=== PATIENT | female | born 1975 | race Caucasian/White ===

== ENCOUNTER 2024-06-21 02:00 | Emergency (ER) | payer OTHER ==
[~2024-06-21] VITALS: Ht 149.9 cm; Wt 81.6 kg
[2024-06-21] MEDS ORDERED: DIPHENHYDRAMINE HCL 50 MG/ML VIAL 1ML IV STA (03:49)
[2024-06-21] MEDS ORDERED: METHYLPREDNISOLONE SOD SUCC 125 MG VIAL IV STA (03:50)
[2024-06-21] MEDS ORDERED: CEFTRIAXONE SODIUM 1,000 MG VIAL IV STA (03:50)
[2024-06-21] MEDS ORDERED: BENADRYL25 MG PO (05:04)
[2024-06-21] MEDS ORDERED: CEPHALEXIN500 MG PO (05:04)
[2024-06-21] MEDS ORDERED: BETAMETHASONE D15 G2 TOP (05:07)
== END 2024-06-21 05:11 ==
LOC: ER 02:01
DX: M79.642 Pain in left hand (principal); G89.11 Acute pain due to trauma; Z91.030 Bee allergy status